=== PATIENT | female | born 1995 | race Caucasian/White ===

== ENCOUNTER 2021-07-09 00:02 | Inpatient (IN) | payer BC ==
[2021-07-09] MEDS ORDERED: PRENATAL VITAM1 EACH PO (02:57)
[2021-07-09] MEDS ORDERED: VENTOLIN HFA18 GM INH (02:59)
--- NOTE | 2021-07-09 10:53 | PR ---
[facility] [address] [facility] [place], [place] [address] Signed Progress Notes IP Datetime Report Generated by MELODY: 07/09/2021 10:53 PROGRESS NOTES: [id number] Impression: Normal Progression of Labor Procedures: Artificial ROM; Sterile Vag Exam Plan: Continue Present Management VITAL SIGNS: [id number] Vital Signs: Reviewed VS Notable Details: intermittent severe range HTN EXAM: [id number] Dilatation: 3.5 Effacement: 70 Station: -2 Contractions: q 2 to 5 min, mild MEMBRANES: [id number] Comments: Progressing. Will continue. FETUS A: [id number] FHR Baseline: 130 Variability: Minimal - >Undetectable to <=5bpm Accelerations: 15X15 Decelerations: None FHR Category: Category II Presentation: Vertex Comments on Fetus A: reassuring but decreased variability currently FETUS B: [id number] Signing Physician: Ella Delarosa MD Copies: ~ *Electronically Signed* 07/09/21 1053 ELLA DELAROSA MD PATIENT NAME: JUDE PUGHFoster GREGORY PROGRESS NOTE DATE OF : [birth year] PHYSICIAN: ELLA DELAROSA MD RPT #: [id number] REPORT IS CONFIDENTIAL AND NOT TO BE RELEASED WITHOUT AUTHORIZATION
--- NOTE | 2021-07-10 09:15 | PR ---
[facility] [address] [facility] [place], [place] [address] Signed PP Progress Notes Datetime Report Generated by CPN: 07/10/2021 09:15 SUBJECTIVE: [id number] Pain: Within Normal Limits Vital Signs: [id number] Vital Signs: Reviewed Notable Details: mild HTN Cardiovascular: Not Done Respiratory: Not Done Abdomen/Uterus: Abnormal Lochia: Normal Vulva/Perineum: Not Done Breasts: Not Done CVA Tenderness: Not Done Extremities: Normal Incision: Not Applicable Progress: Normal Exam Comments: Fundus firm, NT @ U-2. H/H 11.6/34.6, WBC 14.3, plat 137k IMPRESSION/PLAN/PROCEDURES: [id number] Impression: Normal Progression Plan: Continue Present Management Progress Notes: Doing well overall. Will continue to work on breast feeding and observe her BPs. She has mild thrombocytopenia and will recheck in am. Signing Physician: Ella Delarosa MD Copies: ~ *Electronically Signed* 07/10/21914 ELLA DELAROSA MD PATIENT NAME: CANDE PUGH COLT PROGRESS NOTE DATE OF : [birth year] PHYSICIAN: ELLA DELAROSA MD RPT #: [id number] REPORT IS CONFIDENTIAL AND NOT TO BE RELEASED WITHOUT AUTHORIZATION
--- NOTE | 2021-07-11 08:29 | PR ---
[facility] [address] [place], [place] [address] Signed PP Progress Notes Datetime Report Generated by CPN: 07/11/2021 08:29 SUBJECTIVE: [id number] Pain: Within Normal Limits Pain Comments: Rough night overall--difficulty with breast feeding, fussy baby. Nausea/Vomiting Comments: Did not get much help. Flatus Comments: Very tired Vital Signs: [id number] Vital Signs: Reviewed Notable Details: HTN Cardiovascular: Not Done Respiratory: Not Done Abdomen/Uterus: Abnormal Lochia: Normal Vulva/Perineum: Not Done Breasts: Not Done CVA Tenderness: Not Done Extremities: Normal Incision: Not Applicable Progress: Normal Exam Comments: Fundus firm, NT @ U-2. IMPRESSION/PLAN/PROCEDURES: [id number] Impression: Normal Progression; Induced Hypertension Plan: Discharge Procedures: Rubella Progress Notes: Doing well other than BP which I suspect is worsened by her rough night. I think she is ready for D/C. Signing Physician: Ella Delarosa MD Copies: ~ *Electronically Signed* 07/11/21828 ELLA DELAROSA MD PATIENT NAME: CANDE PUGH PROGRESS NOTE DATE OF : [birth year] PHYSICIAN: ELLA DELAROSA MD RPT #: [id number] REPORT IS CONFIDENTIAL AND NOT TO BE RELEASED WITHOUT AUTHORIZATION
== END 2021-07-11 10:50 | disposition home or self-care (01) | DRG 807 ==
LOC: FBC 00:02
PROVIDERS: ADMIT Obstetrics & Gynecology; ATTEND Obstetrics & Gynecology
PROC: 10E0XZZ Delivery of Products of Conception, External Approach (ICD-10-PCS; principal; 2021-07-09)
PROC: 0KQM0ZZ Repair Perineum Muscle, Open Approach (ICD-10-PCS; 2021-07-09)
PROC: 10907ZC Drainage of Amniotic Fluid, Therapeutic from Products of Conception, Via Natural or Artificial Opening (ICD-10-PCS; 2021-07-09)
PROC: 3E0P7VZ Introduction of Hormone into Female Reproductive, Via Natural or Artificial Opening (ICD-10-PCS; 2021-07-09)
PROC: 3E0R3BZ Introduction of Anesthetic Agent into Spinal Canal, Percutaneous Approach (ICD-10-PCS; 2021-07-09)
PROC: 00HU33Z Insertion of Infusion Device into Spinal Canal, Percutaneous Approach (ICD-10-PCS; 2021-07-09)
DX: O14.04 Mild to moderate pre-eclampsia, complicating childbirth (principal); Z37.0 Single live birth; O24.420 Gestational diabetes mellitus in childbirth, diet controlled; Z3A.37 37 weeks gestation of pregnancy; O70.1 Second degree perineal laceration during delivery; O99.52 Diseases of the respiratory system complicating childbirth; O72.3 Postpartum coagulation defects; D69.6 Thrombocytopenia, unspecified; J45.40 Moderate persistent asthma, uncomplicated; O99.284 Endocrine, nutritional and metabolic diseases complicating childbirth; E55.9 Vitamin D deficiency, unspecified; Z88.1 Allergy status to other antibiotic agents; Z79.899 Other long term (current) drug therapy; Z87.891 Personal history of nicotine dependence
CPT/HCPCS: 01960; 82565; 82570; 84156; 84450; 84520; 84550; 85027; A9270; J2405; J2590; J2795; J3010; J7121